=== PATIENT | female | born 1995 ===

== ENCOUNTER 2016-08-27 11:12 | Emergency (ER) | payer OTHER ==
--- NOTE | 2016-08-27 13:16 | UC ---
Saige Alarcon Rebecca, scribed for Shena Mahan MD on 08/27/16 at 1303 . Throat Pain/Nasal Jeferson HPI - HPI Summary HPI Summary: Pt is a 21 y/o F who presents to [facility] c/o throat pain and swollen tonsils. Sx began 2 days ago and have been constant since onset. Pain is currently severe, ranked 7/10 and characterized as aching. Sx aggravated by swallowing , alleviated by Advil. Additionally c/o tactile fever, chills, and slight difficulty breathing. Unsure of highest temperature, though she reports it was 99 here and she is feeling better than she has been. Last Motrin yesterday. Denies N/V, ear pain, sinus pain and drooling. Confirms she has been drinking water. Positive sick contact with a fellow [employer] and 2 campers. NKDA. Patient's medications reviewed this visit. - History of Current Complaint Chief Complaint: UCGeneralIllness Stated Complaint: SWOLLEN TONSILS Time Seen by Provider: 08/27/16 12:54 Hx Obtained From: Patient Hx Last Menstrual Period: last week Onset/Duration: Still Present Severity: Moderate Pain Intensity: 7 Pain Scale Used: 0-10 Numeric Associated Signs & Symptoms: Positive: Fever, Other - Chills, dizziness, difficulty breathing. Negative: Drooling, Sinus Discomfort, Vomiting - Allergies/Home Medications Allergies/Adverse Reactions: Allergies Allergy/AdvReac Type Severity Reaction Status Date / Time Seasonal Allergies Allergy Congestion Uncoded 08/27/16 11:54 Home Medications: Home Medications LoraTADine TAB(NF) [Claritin 10 MG TAB(NF)] 1 tab PO DAILY 08/27/16 [History Confirmed 08/27/16] Norgestimate-Ethinyl Estradiol [Ortho-Cyclen 0.25-35 mg-Mcg] 1 tab PO DAILY [History Confirmed 08/27/16] PMH/Surg Hx/FS Hx/Imm Hx Previously Healthy: Yes - Surgical History Surgical History: None - Family History Known Family History: Negative: Cardiac Disease, Hypertension, Diabetes - Social History Occupation: Employed Full-time - [employer] Alcohol Use: Rare Substance Use Type: None Smoking Status (MU): Never Smoked Tobacco Review of Systems Constitutional: Fever, Chills Skin: Negative Eyes: Negative ENT: Sore Throat, Other - sore throat Respiratory: Negative Cardiovascular: Negative Gastrointestinal: Negative Genitourinary: Negative Motor: Negative Neurovascular: Negative Musculoskeletal: Negative Neurological: Other - Dizziness Psychological: Negative All Other Systems Reviewed And Are Negative: Yes Physical Exam Triage Information Reviewed: Yes Appearance: Well-Appearing, No Pain Distress, Well-Nourished, Other: - discomfort with swallowing. No change in voice, no postering, no guarding, no difficult with secretions Vital Signs: Initial Vital Signs Temp 99.1 F 08/27/16 11:48 Pulse 93 08/27/16 11:48 Resp 18 08/27/16 11:48 BP 112/79 08/27/16 11:48 Pulse Ox 100 08/27/16 11:48 Eye Exam: Normal ENT: Positive: Pharyngeal erythema, TMs normal - TM x 2 clear - no fluid, no retraction, no erythema mmoist + exudate L>R, uvula midline, symmetric, tonsils enlarged with erythema + submandibular LA b/l, Tonsillar swelling, Tonsillar exudate. Negative: Pharynx normal Dental Exam: Normal Neck exam: Normal Neck: Positive: Supple, Nontender Respiratory Exam: Normal Respiratory: Positive: Chest non-tender, Lungs clear, Normal breath sounds, No respiratory distress, No accessory muscle use Cardiovascular Exam: Normal Cardiovascular: Positive: RRR, No Murmur Abdominal Exam: Normal Abdomen Description: Positive: Nontender, No Organomegaly Bowel Sounds: Positive: Present Musculoskeletal Exam: Normal Neurological Exam: Normal Neurological: Positive: Alert Psychological Exam: Normal Psychological: Positive: Normal Response To Family Skin Exam: Normal Throat Pain/Nasal Course/Dx - Course Assessment/Plan: Pt with sore throat x 2 days. Pt with painful swallowing, tactile temp. + drinking water. + strep on exam. will rx amox, viscous lidocaine. hydrate. secretion precautions - Differential Dx/Diagnosis Provider Diagnoses: strep pharyngitis Discharge - Discharge Plan Condition: Stable Disposition: HOME Prescriptions: Amoxicillin PO (*) [Amoxicillin 875 MG (*)] 875 mg PO BID #20 tab Lidocaine 2% VISCOUS* [Xylocaine 2% Viscous*] 15 ml SWISH SPIT Q6H PRN #1 btl PRN Reason: Pain Patient Education Materials: Strep Throat (ED) Referrals: Non Staff,Doctor [Primary Care Provider] - Additional Instructions: - Stay well hydrated. Drink plenty of non-alcoholic, non-caffinated beverages. - Gargle with warm, salt water 2-3 times a day - Cold beverages may be soothing to your throat - popsicles, apple sauce, jello - After you have been on antibiotics for 2 days - change your toothbrush and your pillowcase. These infections are spread by secretions - do NOT share eating or drinking utensils - clean items you share with other people such as cell phones, computer mouse, TV remote, computer tablets, etc - Alternate ibuprofen (Advil, Motrin) 600mg and Tylenol every 3 hours for pain or fever. Take with food. Do NOT take for more than 4-5 days. - okay to gargle with prescription numbing medication (lidocaine) as prescribed - Call your doctor or return with questions or concerns The documentation as recorded by the Saige nair Rebecca accurately reflects the service I personally performed and the decisions made by me, Shena Mahan MD.
== END 2016-08-27 13:25 | disposition home or self-care (01) ==
LOC: UCEAST 11:12
DX: J02.0 Streptococcal pharyngitis (principal)
CPT/HCPCS: 87651; 99202; G0463